=== PATIENT | male | born 1965 | race Caucasian/White ===

== ENCOUNTER 2017-11-14 16:41 | Emergency (ER) | payer MEDICAID ==
[~2017-11-14] VITALS: Ht 175.3 cm; Wt 68.0 kg
--- NOTE | 2017-11-14 16:52 | Emergency Room Report ---
History of Present Illness General Source: Patient Present Illness HPI Patient is a 52-year-old male presented after increased abdominal pain for the past 4 days. Patient apparently had recently been seen and evaluated [facility]. The patient states he been having pain for the past 4 days associated with diarrhea. The patient is uncertain if he's been having any bloody stools. He denies any vomiting. History is limited by poor historian Allergies: Coded Allergies: No Known Allergies (Unverified , 11/14/17) Patient History Reviewed Nursing Documentation: PMH: Agreed, PSxH: Agreed Review of Systems All Other Systems: negative except mentioned in HPI Physical Exam Sp02 EP Interpretation: reviewed, normal General Appearance: normal inspection, well appearing, no apparent distress, alert, GCS 15 Head: atraumatic ENT: normal ENT inspection, hearing grossly normal, normal voice Neck: normal inspection, full range of motion, supple, no bony tend Respiratory: normal inspection, lungs clear, normal breath sounds, no respiratory distress, no retraction, no wheezing Cardiovascular #1: regular rate, rhythm, no edema Gastrointestinal: normal inspection, normal bowel sounds, non tender, soft, no guarding, no hernia Genitourinary: no CVA tenderness Musculoskeletal: normal inspection, back normal, normal range of motion Neurologic: normal inspection, alert, responsive, speech normal Psychiatric: normal inspection, judgement/insight normal, mood/affect normal Skin: normal inspection, normal color, no rash Medical Decision Making Diagnostic Impression: Primary Impression: Bilateral pleural effusion Additional Impression: Enteritis ER Course Patient presented for chest pain. Differential diagnosis included but was not limited to acute coronary syndrome, pulmonary embolism, pneumonia, aortic dissection, shingles, pneumothorax, aortic dissection, esophageal rupture, pericarditis. A CT abdomen pelvis read by radiology showed small bilateral pleural effusions. Basilar septal thickening was noted. Fluid-filled prominent bowel loops with bilateral inguinal hernias containing fat fluid and mild stranding. patient was given IV Lasix. was contacted for capitated facility transfer. Currently patient is stable for transfer. Labs Test 11/14/17 17:00 11/14/17 18:55 White Blood Count 11.6 K/UL (4.8-10.8) Red Blood Count 4.13 M/UL (4.70-6.10) Hemoglobin 12.8 G/DL (14.2-18.0) Hematocrit 39.3 % (42.0-52.0) Mean Corpuscular Volume 95 FL (80-99) Mean Corpuscular Hemoglobin 31.0 PG (27.0-31.0) Mean Corpuscular Hemoglobin Concent 32.6 G/DL (32.0-36.0) Red Cell Distribution Width 11.1 % (11.6-14.8) Platelet Count 272 K/UL (150-450) Mean Platelet Volume 5.7 FL (6.5-10.1) Neutrophils (%) (Auto) 68.7 % (45.0-75.0) Lymphocytes (%) (Auto) 21.1 % (20.0-45.0) Monocytes (%) (Auto) 7.5 % (1.0-10.0) Eosinophils (%) (Auto) 1.2 % (0.0-3.0) Basophils (%) (Auto) 1.4 % (0.0-2.0) Prothrombin Time 9.2 SEC (9.30-11.50) Prothromb Time International Ratio 0.9 (0.9-1.1) Activated Partial Thromboplast Time 29 SEC (23-33) Sodium Level 141 MMOL/L (136-145) Potassium Level 3.6 MMOL/L (3.5-5.1) Chloride Level 106 MMOL/L (98-107) Carbon Dioxide Level 29 MMOL/L (21-32) Anion Gap 6 mmol/L (5-15) Blood Urea Nitrogen 8 mg/dL (7-18) Creatinine 0.6 MG/DL (0.55-1.30) Estimat Glomerular Filtration Rate > 60 mL/min (>60) Glucose Level 73 MG/DL (74-106) Calcium Level 7.5 MG/DL (8.5-10.1) Total Bilirubin 0.3 MG/DL (0.2-1.0) Aspartate Amino Transf (AST/SGOT) 32 U/L (15-37) Alanine Aminotransferase (ALT/SGPT) 43 U/L (12-78) Alkaline Phosphatase 94 U/L (46-116) Total Protein 5.9 G/DL (6.4-8.2) Albumin 2.7 G/DL (3.4-5.0) Globulin 3.2 g/dL Albumin/Globulin Ratio 0.8 (1.0-2.7) Lipase 70 U/L (73-393) Urine Color Pale yellow Urine Appearance Clear Urine pH 6 (4.5-8.0) Urine Specific [place] 1.015 (1.005-1.035) Urine Protein Negative (NEGATIVE) Urine Glucose (UA) Negative (NEGATIVE) Urine Ketones Negative (NEGATIVE) Urine Occult Blood 2+ (NEGATIVE) Urine Nitrite Negative (NEGATIVE) Urine Bilirubin Negative (NEGATIVE) Urine Urobilinogen Normal MG/DL (0.0-1.0) Urine Leukocyte Esterase Negative (NEGATIVE) Urine RBC 0-2 /HPF (0 - 0) Urine WBC 0-2 /HPF (0 - 0) Urine Squamous Epithelial Cells None /LPF (NONE/OCC) Urine Bacteria None /HPF (NONE) EKG Diagnostic Results Rate: normal Rhythm: NSR - 72 ST Segments: other Rhythm Strip Diag. Results EP Interpretation: yes Rhythm: NSR, no PVC's, no ectopy Status: unchanged [facility] Condition: Stable Jac Mooney Nov 14, 2017 16:52
[2017-11-14 17:06] VITALS: BP 108/72
[2017-11-14 17:45] LABS: BASOPHILS % (AUTO) 1.4 % (0.0-2.0); EOSINOPHILS % (AUTO) 1.2 % (0.0-3.0); LYMPHOCYTES % (AUTO) 21.1 % (20.0-45.0); MEAN CORPUSCULAR HGB CONC 32.6 G/DL (32.0-36.0); MEAN CORPUSCULAR VOLUME 95 FL (80-99); MEAN PLATELET VOLUME 5.7 FL (6.5-10.1); MONOCYTES % (AUTO) 7.5 % (1.0-10.0); NEUTROPHILS % (AUTO) 68.7 % (45.0-75.0); PLATELET COUNT 272 K/UL (150-450); RED BLOOD COUNT 4.13 M/UL (4.70-6.10); RED CELL DISTRIBUTION WIDTH 11.1 % (11.6-14.8); WHITE BLOOD COUNT 11.6 K/UL (4.8-10.8)
[2017-11-14 17:51] LABS: INR 0.9 (0.9-1.1); PROTHROMBIN TIME 9.2 SEC (9.30-11.50)
[2017-11-14 18:24] LABS: ANION GAP 6 mmol/L (5-15); CALCIUM 7.5 MG/DL (8.5-10.1); CARBON DIOXIDE 29 MMOL/L (21-32); CHLORIDE 106 MMOL/L (98-107); CREATININE 0.6 MG/DL (0.55-1.30); GLOMERULAR FILTRATION RATE > 60 mL/min (>60); POTASSIUM 3.6 MMOL/L (3.5-5.1); SODIUM 141 MMOL/L (136-145)
[2017-11-14 18:30] LABS: ALANINE AMINOTRANSFERASE 43 U/L (12-78); ALBUMIN/GLOBULIN RATIO 0.8 (1.0-2.7); ASPARTATE AMINO TRANSFERASE 32 U/L (15-37); LIPASE 70 U/L (73-393); TOTAL PROTEIN 5.9 G/DL (6.4-8.2)
[2017-11-14 19:12] LABS: APPEARANCE,URINE CLEAR; KETONES,URINE NEGATIVE (NEGATIVE); LEUKOCYTE ESTERASE ,URINE NEGATIVE (NEGATIVE); NITRITE,URINE NEGATIVE (NEGATIVE); PH,URINE 6 (4.5-8.0); PROTEIN,URINE NEGATIVE (NEGATIVE); UROBILINOGEN,URINE NORMAL MG/DL (0.0-1.0)
[2017-11-14 19:18] LABS: RBC,URINE 0-2 /HPF (0 - 0); WBC,URINE 0-2 /HPF (0 - 0)
[2017-11-14 19:45] VITALS: BP 108/63
[2017-11-14 21:50] VITALS: BP 112/67
[2017-11-14 23:03] VITALS: BP 110/64
[2017-11-14 23:18] VITALS: BP 110/64
--- NOTE | 2017-11-15 11:02 | Diagnostic Imaging Report ---
Indication: Dyspnea Technique: XRAY Chest 1v Comparison: Correlation made to images of the lower lungs from concurrent CT of the abdomen and pelvis Findings: Patient rotated to the right. Heart size and mediastinal contours are likely within normal limits given patient rotation. Known bilateral pleural effusions better appreciated on concurrent CT. There is hazy opacification of the right upper lung which may in part be artifactual related to patient rotation however pneumonia is not entirely excluded. There is no definite pneumothorax. Multilevel degenerative changes are seen in the thoracic spine. No acute osseous abnormality seen. Impression: Limited exam given significant patient rotation. Known bilateral pleural effusions better seen on concurrent CT. Hazy opacification in the right upper lung may be artifactual however pneumonia is not entirely excluded. Repeat exam recommended. This is slightly discrepant from the interpretation of the treating ER physician. Findings and follow-up imaging recommendations discussed with Dr. Hu approximately 10:55 AM 11/15/2017.
--- NOTE | 2017-11-15 12:49 | Diagnostic Imaging Report ---
Indication: Abdominal pain Technique: CT of the abdomen and pelvis utilizing automated exposure control with intravenous contrast. Venous scanning performed. CT dose: Total DLP 621.53 mGycm; CTDI vol 11.42 mGy Comparison: None Findings: There are small bilateral pleural effusions with adjacent atelectasis/consolidation of the bilateral lower lobes. Mild septal thickening is noted suggesting edema. Heart is enlarged. No pericardial effusion. Liver is enlarged, measuring 19 cm in craniocaudal length. No focal hepatic lesion is appreciated on this single phase study. Hepatic veins and portal veins are patent. Gallbladder is unremarkable in appearance. Spleen, adrenal glands and pancreas are unremarkable in appearance. Simple cysts are noted in the right kidney, larger in the upper lobe measures up to 2.9 cm. No evidence of hydronephrosis bilaterally. Bladder is mildly distended but otherwise unremarkable. The prostate is heterogeneous but not markedly enlarged. Multiple prominent fluid-filled bowel loops are noted within question for possible gastroenteritis. Ileus not entirely excluded. No definite evidence of mechanical small bowel obstruction at this time. There are bilateral inguinal hernias containing fat, fluid and mild stranding. There is no free intraperitoneal air. The appendix is not definitively identified. Aorta is normal in caliber. No gross abdominal pelvic lymphadenopathy is seen. Multilevel changes seen in the thoracolumbar spine. No acute osseous abnormality appreciated. Impression: Fluid filled prominent bowel loops raising question for gastroenteritis. Early ileus not excluded. No definite evidence to suggest complete mechanical small bowel obstruction at this time. Clinical correlation recommended. Bilateral inguinal hernias with fat, fluid and mild stranding. No bowel loops are noted within these hernias. Small bilateral pleural effusions with adjacent compressive atelectasis in the bilateral lower lobes. Pneumonia should be excluded clinically. Cardiomegaly and mild septal thickening raising question for fluid overload/mild interstitial edema. Additional findings as above. This corresponds with the [facility] preliminary report. The CT scanner at [facility] is accredited by the [employer] and the scans are performed using protocols designed to limit radiation exposure to as low as reasonably achievable to attain images of sufficient resolution adequate for diagnostic evaluation.
--- NOTE | 2017-11-15 14:46 | Cardiology Report ---
APPROVED REPORT EKG Measurement Heart [id number] Normal sinus rhythm Normal ECG
--- NOTE | 2017-11-15 14:53 | Cardiology Report ---
APPROVED REPORT EKG Measurement Heart [id number] Sinus rhythm with short [place] Otherwise normal ECG
== END 2017-11-14 23:19 | disposition short-term general hospital (02) ==
LOC: EDBD 16:41 → EMR 17:00
DX: K52.9 Noninfective gastroenteritis and colitis, unspecified (principal); J90 Pleural effusion, not elsewhere classified; K40.20 Bilateral inguinal hernia, without obstruction or gangrene, not specified as recurrent; I51.7 Cardiomegaly
CPT/HCPCS: 36415; 71010; 74177; 80053; 81003; 83690; 85025; 85610; 85730; 86850; 86900; 86901; 93005; 96374; 99285; J1940; Q9967

== ENCOUNTER 2019-08-01 17:06 | Emergency (ER) | payer MEDICAID, OTHER ==
[~2019-08-01] VITALS: Ht 175.3 cm; Wt 77.1 kg
--- NOTE | 2019-08-01 17:19 | NUR ---
ED Nurse Note: PT BROUGHT BY [id number] AOX4. PT C/O MEDIAL ABDOMINAL PAIN, 09/01 X 2 DAYS AGO ALONG WITH 3 EPISODES OF VOMITING YESTERDAY. PT DENIES VOMITING TODAY. PT DENIES DIARRHEA. LAST BM THIS MORNING WHICH WAS FORMED. PT CONTINUES TO C/O NAUSEA. ACTIVE BOWEL SOUNDS IN ALL QUADRANTS BUT ABDOMEN APPEARS DISTENDED. NONTENDER TO PALPATION.
[2019-08-01 17:20] VITALS: BP 108/85
[2019-08-01] MEDS ORDERED: Isovue-300 100ml vial INJ PRN (17:30)
[2019-08-01] MEDS: Mylanta II UD 30ml ORAL ONE ×2 (17:40→17:46)
[2019-08-01] MEDS: Dicyclomine HCl 10mg/5ml oral soln ORAL ONE ×2 (17:40→17:45)
[2019-08-01] MEDS: Lidocaine 2% Visc 15ml soln ORAL ONE ×2 (17:40→17:46)
--- NOTE | 2019-08-01 17:43 | NUR ---
ED Nurse Note: PT BREATHING LABORED AND O2SAT AT 90%. PT PLACED ON 2L VIA NASAL CANNULA. O2 SAT 98% ON 2L.
[2019-08-01] MEDS ORDERED: Albuterol/Ipratropium 3ml neb HHN ONE (17:45)
--- NOTE | 2019-08-01 17:47 | NUR ---
ED Nurse Note: RT CALLED FOR BREATHING TX.
[2019-08-01 18:01] LABS: BASOPHILS % (AUTO) 2.2 % (0.0-2.0); EOSINOPHILS % (AUTO) 3.4 % (0.0-3.0); HEMATOCRIT 42.5 % (42.0-52.0); HEMOGLOBIN 15.5 G/DL (14.2-18.0); LYMPHOCYTES % (AUTO) 31.7 % (20.0-45.0); MEAN CORPUSCULAR VOLUME 91 FL (80-99); NEUTROPHILS % (AUTO) 50.7 % (45.0-75.0); PLATELET COUNT 230 K/UL (150-450); RED BLOOD COUNT 4.68 M/UL (4.70-6.10); RED CELL DISTRIBUTION WIDTH 11.7 % (11.6-14.8); WHITE BLOOD COUNT 8.6 K/UL (4.8-10.8)
[2019-08-01 18:02] LABS: ANION GAP 10 mmol/L (5-15); BLOOD UREA NITROGEN 19 mg/dL (7-18); CALCIUM 8.7 MG/DL (8.5-10.1); CARBON DIOXIDE 26 MMOL/L (21-32); CHLORIDE 107 MMOL/L (98-107); CREATININE 0.8 MG/DL (0.55-1.30); POTASSIUM 4.1 MMOL/L (3.5-5.1); SODIUM 143 MMOL/L (136-145)
--- NOTE | 2019-08-01 18:03 | NUR ---
ED Nurse Note: PT REMINDED URINE SAMPLE IS NEEDED. PT REFUSES STRAIGHT CATHETER. URINAL REMAINS AT BEDSIDE.
[2019-08-01 18:09] LABS: ALANINE AMINOTRANSFERASE 59 U/L (12-78); ALBUMIN 3.4 G/DL (3.4-5.0); ALKALINE PHOSPHATASE 134 U/L (46-116); ASPARTATE AMINO TRANSFERASE 43 U/L (15-37); BILIRUBIN,TOTAL 0.5 MG/DL (0.2-1.0)
--- NOTE | 2019-08-01 18:14 | NUR ---
ED Nurse Note: PT TO CT VIA CRISTO.
--- NOTE | 2019-08-01 18:24 | NUR ---
Note opal in EDM - 08/01/19 at 1843 by MARTINEZ ED Nurse Note: PT REMINDED URINE SAMPLE IS NEEDED. PT REFUSES STRAIGHT CATHETER. URINAL REMAINS AT BEDSIDE.
--- NOTE | 2019-08-01 18:24 | NUR ---
ED Nurse Note: PT REMINDED URINE SAMPLE IS NEEDED. PT REFUSES STRAIGHT CATHETER. URINAL REMAINS AT BEDSIDE.
--- NOTE | 2019-08-01 18:26 | NUR ---
ED Nurse Note: PT BACK FROM CT VIA CRISTO.
--- NOTE | 2019-08-01 18:27 | Emergency Room Report ---
History of Present Illness General Chief Complaint: Abdominal Pain Source: Patient, Medical Record, EMS Present Illness HPI Is a 54-year-old male presented after increased abdominal pain. Patient was noted to have increased epigastric discomfort. Patient had not been having any fever. He reports having some increased shortness of breath. Had prior history of bipolar disorder and COPD. He reports taking inhalers. He denies any prior cardiac history. Prior history of hernia. He denies vomiting. No diarrhea. Reports recent alcohol intake. Denies hematemesis or bloody stools. Allergies: Coded Allergies: No Known Allergies (Unverified , 11/14/17) Patient History Past Medical History: see triage record Reviewed Nursing Documentation: PMH: Agreed; PSxH: Agreed Nursing Documentation-PMH Past Medical History: No History, Except For Hx Cardiac Problems: Yes Hx Asthma: Yes Review of Systems All Other Systems: negative except mentioned in HPI Physical Exam Vital Signs Date Time Temp Pulse Resp B/P (MAP) Pulse Ox O2 Delivery O2 Flow Rate FiO2 08/01/19 17:07 97.5 94 16 102/71 (81) 92 Room Air Sp02 EP Interpretation: reviewed, normal General Appearance: normal inspection, well appearing, no apparent distress, alert, GCS 15 Head: atraumatic ENT: normal ENT inspection, hearing grossly normal, normal voice Neck: normal inspection, full range of motion, supple, no bony tend Respiratory: normal inspection, no respiratory distress, no retraction, wheezing Cardiovascular #1: regular rate, rhythm, no edema Gastrointestinal: non tender, soft, hernia - no bowel. 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 Differential diagnosis include was not limited to appendicitis, cholecystitis, pancreatitis among others. Because of complexity of patient's case laboratory tests and imaging studies were ordered. Patient was noted to have some prior history of psychiatric disease. He was given IV acid blockers. He was noted to have some difficulty with respirations and was given breathing treatments with albuterol. CT of abdomen pelvis read by radiology showed: Colonic diverticula without diverticulitis. No GI or urinary tract obstruction. Unremarkable appendix. Fatty umbilical and inguinal hernias. Patient given IV Lasix. Patient was discussed with [facility] physician for [facility]. Patient be transferred to [facility] for further evaluation and treatment. Labs Test 08/01/19 17:35 White Blood Count 8.6 K/UL (4.8-10.8) Red Blood Count 4.68 M/UL (4.70-6.10) Hemoglobin 15.5 G/DL (14.2-18.0) Hematocrit 42.5 % (42.0-52.0) Mean Corpuscular Volume 91 FL (80-99) Mean Corpuscular Hemoglobin 33.2 PG (27.0-31.0) Mean Corpuscular Hemoglobin Concent 36.6 G/DL (32.0-36.0) Red Cell Distribution Width 11.7 % (11.6-14.8) Platelet Count 230 K/UL (150-450) Mean Platelet Volume 5.3 FL (6.5-10.1) Neutrophils (%) (Auto) 50.7 % (45.0-75.0) Lymphocytes (%) (Auto) 31.7 % (20.0-45.0) Monocytes (%) (Auto) 12.0 % (1.0-10.0) Eosinophils (%) (Auto) 3.4 % (0.0-3.0) Basophils (%) (Auto) 2.2 % (0.0-2.0) Sodium Level 143 MMOL/L (136-145) Potassium Level 4.1 MMOL/L (3.5-5.1) Chloride Level 107 MMOL/L (98-107) Carbon Dioxide Level 26 MMOL/L (21-32) Anion Gap 10 mmol/L (5-15) Blood Urea Nitrogen 19 mg/dL (7-18) Creatinine 0.8 MG/DL (0.55-1.30) Estimat Glomerular Filtration Rate > 60 mL/min (>60) Glucose Level 108 MG/DL (74-106) Calcium Level 8.7 MG/DL (8.5-10.1) Total Bilirubin 0.5 MG/DL (0.2-1.0) Aspartate Amino Transf (AST/SGOT) 43 U/L (15-37) Alanine Aminotransferase (ALT/SGPT) 59 U/L (12-78) Alkaline Phosphatase 134 U/L (46-116) Total Protein 6.9 G/DL (6.4-8.2) Albumin 3.4 G/DL (3.4-5.0) Globulin 3.5 g/dL Albumin/Globulin Ratio 1.0 (1.0-2.7) Lipase 171 U/L (73-393) EKG Diagnostic Results Rate: normal - 91 Rhythm: NSR ST Segments: no acute changes Rhythm Strip Diag. Results EP Interpretation: yes Rhythm: NSR - 79, no PVC's, no ectopy Last Vital Signs Date Time Temp Pulse Resp B/P (MAP) Pulse Ox O2 Delivery O2 Flow Rate FiO2 08/01/19 18:00 86 22 99 90 22 99 08/01/19 17:20 98.0 108/85 Room Air Status: improved Disposition: [facility] Condition: Serious Jac Mooney MD Aug 01, 2019 18:27
--- NOTE | 2019-08-01 19:07 | NUR ---
HAND-OFF: REPORT GIVEN TO TIAN SADLER.
--- NOTE | 2019-08-01 19:08 | NUR ---
ED Nurse Note: pt calm and comfortable in bed. pt is cooperative and provided urine sample. urine specimen sent to lab. pt vss, no signs of acute distress.
[2019-08-01 19:10] VITALS: BP 95/63
[2019-08-01 19:27] LABS: APPEARANCE,URINE CLEAR; BILIRUBIN, URINE NEGATIVE (NEGATIVE); GLUCOSE, URINE (UA) NEGATIVE (NEGATIVE); KETONES,URINE NEGATIVE (NEGATIVE); LEUKOCYTE ESTERASE ,URINE NEGATIVE (NEGATIVE); NITRITE,URINE NEGATIVE (NEGATIVE); PH,URINE 5 (4.5-8.0); PROTEIN,URINE NEGATIVE (NEGATIVE); UROBILINOGEN,URINE 1 MG/DL (0.0-1.0)
[2019-08-01 19:28] LABS: COLOR,URINE YELLOW
--- NOTE | 2019-08-01 20:38 | Diagnostic Imaging Report ---
Clinical Indication: Abdominal pain Technique: No oral contrast utilized, per emergency room physician request IV administration nonionic contrast. Venous phase spiral acquisition obtained through the abdomen and pelvis. Multiplanar reconstructions were generated. Total dose length product 863.35 mGycm. CTDIvol(s) 15.7 mGy. Dose reduction achieved using automated exposure control Comparison: 11/14/2017 Findings: There is fairly extensive colonic diverticulosis. There is wall thickening of the sigmoid colon, but no evidence of perisigmoid fat infiltration to suggest diverticulitis. The appendix is normal. No small bowel distention. No free or loculated intraperitoneal gas or fluid is evident. Distal esophagus, stomach, duodenum are unremarkable. There are bilateral direct inguinal hernias that contain only fat, larger on the right than on the left. That on the right appears larger than on the prior exam. Previous exam demonstrated considerable fluid within colon and small bowel. This is not evident currently. There is a small fat-containing umbilical hernia again demonstrated. The gallbladder is nondistended. The liver, spleen, pancreas, adrenals are unremarkable. The right kidney demonstrates multiple cysts. The left kidney demonstrates one or more subcentimeter low-attenuation lesions which are too small to characterize. No renal or ureteral calculi, hydronephrosis, or hydroureter demonstrated. Bladder contents are higher in attenuation than normal urine, measuring approximate 17 Hounsfield units. This is presumably not due to contrast, as the ureters and renal collecting systems are not yet opacified. No pelvic mass or adenopathy. The included lung bases demonstrate areas of linear atelectasis as well as dependent atelectatic changes and possibly some congestion. The heart is borderline enlarged. The bones demonstrate mild degenerative spondylosis changes. There are degenerative changes of the right hip. Impression: No definite acute abnormality Fairly extensive colonic diverticulosis. No evidence of diverticulitis. Apparent wall thickening of the sigmoid colon probably represents circular muscle hypertrophy related to such Bilateral fat-containing inguinal hernias, lateral the right slightly increased from the previous study of 2017 Right renal cysts. Left renal subcentimeter low-attenuation lesions which are too small to characterize, most likely benign simple cyst. No further follow-up necessary Borderline cardiomegaly. Possible basilar compressive changes, as well as atelectasis Other findings as noted, including mild degenerative spondylosis, degenerative changes of the right hip, small fat-containing umbilical hernia The above findings are in agreement with the [facility] preliminary report Higher than expected attenuation of bladder contents. This can indicate hematuria, but urinalysis was reported as negative for blood. Significance therefore uncertain The CT scanner at [facility] is accredited by the [employer] and the scans are performed using protocols designed to limit radiation exposure to as low as reasonably achievable to attain images of sufficient resolution adequate for diagnostic evaluation.
[2019-08-01 21:07] VITALS: BP 105/67
--- NOTE | 2019-08-01 21:08 | NUR ---
ED Nurse Note: pt comfortable resting in bed, lights were dimmed and blanket provided to pt.
[2019-08-01 23:44] VITALS: BP 116/71
--- NOTE | 2019-08-02 00:17 | NUR ---
ED Nurse Note: telephone report given to TIAN LIN from [facility] for continuity of care
[2019-08-02 00:38] VITALS: BP 101/71
--- NOTE | 2019-08-02 00:38 | NUR ---
ED Nurse Note: pt left with royalty unit # [id number]. pt aox 4, on room air, vss. no acute distress noted. pt has taken all belongings.
--- NOTE | 2019-08-02 11:40 | Diagnostic Imaging Report ---
Indication: Shortness of breath Technique: One view of the chest Comparison: 11/14/2017 Findings: Less optimal inspiration currently. There is crowding of the bronchovascular markings. There is suggestion of at least mild interstitial congestion. There is apparent blunting of the right costophrenic sulcus. However, this is presumably artifactual as no pleural fluid is demonstrated on a CT scan performed a few hours earlier or this may reflect some patchy atelectasis demonstrated on the same study. The heart is borderline enlarged. Impression: Mild interstitial congestion Basilar atelectatic changes Borderline cardiomegaly
--- NOTE | 2019-08-02 17:18 | Cardiology Report ---
APPROVED REPORT EKG Measurement Heart [id number] Normal sinus rhythm Normal ECG
== END 2019-08-02 00:38 | disposition short-term general hospital (02) ==
LOC: EDBD 17:06 → EMR 18:00
DX: R10.13 Epigastric pain (principal); K40.90 Unilateral inguinal hernia, without obstruction or gangrene, not specified as recurrent; K42.9 Umbilical hernia without obstruction or gangrene; J90 Pleural effusion, not elsewhere classified; J44.9 Chronic obstructive pulmonary disease, unspecified; F31.9 Bipolar disorder, unspecified
CPT/HCPCS: 36415; 71045; 74177; 80053; 81003; 83690; 85025; 93005; 94640; 96374; 96375; 99284; J1940; J2405; Q9967; J7620